=== PATIENT | male | born 1950 | race Caucasian/White ===

== ENCOUNTER 2020-09-23 02:14 | Day surgery (SDC) | payer MEDICARE, SELFPAY ==
[2020-09-12 13:25] VITALS: BMI 33.3
[2020-09-23 08:19] VITALS: BP 132/75; PULSE 54; RESP 17; TEMP 36.2; O2SAT 99
[2020-09-23] MEDS: LACTATED RINGERS 1,000 ML 150 ML IV CONT (08:27)
[2020-09-23 08:41] LABS: Glucose Point of Care 121 mg/dl (65-105)
--- NOTE | 2020-09-23 09:00 | P.PNAN_ITS ---
Anes - Initial Pre Proc Eval Procedure: Operation Date: 09/23/20 09:00 Proposed Procedures p Esophagogastroduodenoscopy & Screening Colonoscopy - Jason Gaines MD Date/Time: 09/23/20 09:00 Surgeon: Jason Gaines MD Pre Op Diagnosis: hx of colon polyps, anemia Patient Data Age: 70 Gender: M Height: 1.75 m Weight: 104.2 kg Last Vital Signs Temp 97.1 F L 09/23/20 08:19 Pulse 54 L 09/23/20 08:19 Resp 17 09/23/20 08:19 BP 132/75 09/23/20 08:19 Pulse Ox 99 09/23/20 08:19 Allergies Allergy/AdvReac Type Severity Reaction Status Date / Time No Known Allergies Allergy Verified 09/23/20 08:17 Home Medications Medication Instructions Recorded Confirmed Type amlodipine 10 mg PO DAILY 09/12/20 09/12/20 History losartan 100 mg PO DAILY 09/12/20 09/12/20 History metformin 1,000 mg PO DAILY 09/12/20 09/12/20 History rosuvastatin 10 mg PO DAILY 09/12/20 09/12/20 History Laboratory Tests 09/23/20 08:32 POC Capillary Glucose 121 mg/dl H mg/dl (65-105) Patient hx anesthesia problems: none Family hx anesthesia problems: none [facility] Past Medical History Medical History (Updated 09/23/20 @ 09:00 by Brock Yeung MD) Diabetes Hyperlipidemia Hypertension Social History Social History Years smoked: 35 Smoking status: Former smoker Tobacco type: cigarettes Alcohol intake: current Drinks per week: 5 Substance use type: does not use Living arrangements: with family Gender identity (if verbalized by the patient): Male Anes - Eval Final PreProcedure Day of Procedure 09/23/20 09:00 Patient weight: obese Heart: regular rate and rhythm Lungs: clear to auscultation Airway: Mallampati scale class III Neurological: alert and oriented Last oral intake: >/= 8 hours ASA classification: III Emergent: no Anesthetic plan: proceed Anesthesia type and monitoring: general GIVS and standard monitoring Informed Consent: The patient's anesthetic plan and its attendant risks and benefits were discussed with the patient/family/POA. Questions were solicited and answers provided to the satisfaction of the patient/family/POA.
--- NOTE | 2020-09-23 09:09 | WPDGICN ---
Assessment and Plan Assessment and plan (1) History of colon polyps: Code(s): Z86.010 - Personal history of colonic polyps Status: Acute Assessment and Plan: Patient has a prior history of colon polyps. For this reason presents for surveillance examination additionally use recently noted to have very mild anemia (2) Anemia: Code(s): D64.9 - Anemia, unspecified Status: Acute Assessment and Plan: patient is reported to be anemic. He gives a history of iron replacement over the last 6 months. He denies any obvious blood in his stools. He reports stool Hemoccult was negative. He has mild normochromic normocytic anemia indices. EGD is requested to exclude any organic disease in the upper GI tract contributing to his anemia and this will be performed. GI Consult Note Consult date/time: 09/23/20 09:09 HPI: Weston Nolasco is a 70 year old male Presents for colonoscopy an EGD. Patient has a prior history of colon polyps. Recently found to be anemic. There has been no signs of GI blood loss. His blood count is minimally to be depressed. Normochromic normocytic indices. Patient denies any blood in his stools is family history is noncontributory. He denies abdominal pain. He presents today for both colonoscopy an EGD because of his anemia. He has prior had colon polyps. Review of Systems Review of Systems: All systems reviewed & are unremarkable except as noted in HPI and below PMFSH Past Medical History Medical History (Updated 09/23/20 @ 09:11 by Jason Gaines MD) Diabetes Hyperlipidemia Hypertension Social History Social History Years smoked: 35 Smoking status: Former smoker Tobacco type: cigarettes Alcohol intake: current Drinks per week: 5 Substance use type: does not use Living arrangements: with family Gender identity (if verbalized by the patient): Male Meds Home Medications and Allergies Home Medications Medication Instructions Recorded Confirmed Type amlodipine 10 mg PO DAILY 09/12/20 09/12/20 History losartan 100 mg PO DAILY 09/12/20 09/12/20 History metformin 1,000 mg PO DAILY 09/12/20 09/12/20 History rosuvastatin 10 mg PO DAILY 09/12/20 09/12/20 History Allergies Allergy/AdvReac Type Severity Reaction Status Date / Time No Known Allergies Allergy Verified 09/23/20 08:17 Vital Signs Vital Signs - 24 hr 09/23/20 08:19 Temperature 97.1 F L Pulse Rate 54 L Respiratory Rate 17 Blood Pressure 132/75 Pulse Oximetry 99 Exam Narrative: Exam Narrative: Physical exam reveals patient to be alert. Vital signs stable. HEENT exam unremarkable. Patient is anicteric. Lungs are clear to auscultation and percussion. Heart is without murmur or extra sounds. Abdominal exam bowel sounds present soft nontender with no organomegaly. Digital external rectal exam normal.
[2020-09-23 09:40] VITALS: BP 110/68; PULSE 63; RESP 17; O2SAT 100
[2020-09-23 09:50] VITALS: BP 112/73; PULSE 61; RESP 18; O2SAT 99
[2020-09-23 10:00] VITALS: BP 123/63; PULSE 55; RESP 18; O2SAT 100
== END 2020-09-23 10:16 | disposition home or self-care (01) ==
PROVIDERS: Visit Provider Internal Medicine Gastroenterology
PROC: 0DJ08ZZ Inspection of Upper Intestinal Tract, Via Natural or Artificial Opening Endoscopic (ICD-10-PCS; CPT 43235; principal; 2020-09-23 09:00)
DX: D64.9 Anemia, unspecified (principal); K57.30 Diverticulosis of large intestine without perforation or abscess without bleeding; K22.10 Ulcer of esophagus without bleeding; Z86.010 Personal history of colon polyps; I10 Essential (primary) hypertension; E11.9 Type 2 diabetes mellitus without complications; E78.5 Hyperlipidemia, unspecified; Z87.891 Personal history of nicotine dependence
CPT/HCPCS: 43235; 45378; 82948; J2001; J2704; J7120